=== PATIENT | female | born 1950 | race Caucasian/White ===

== ENCOUNTER → 2016-04-20 16:33 | Outpatient (CLI) | payer MEDICARE, OTHER | END | disposition home or self-care (01) | LOC: D.CT 16:33 | DX: R10.9 Unspecified abdominal pain (principal) ==

== ENCOUNTER → 2016-11-17 12:31 | Outpatient (CLI) | payer MEDICARE, OTHER | END | disposition home or self-care (01) | LOC: D.MAMMO 12:31 | DX: Z12.31 Encounter for screening mammogram for malignant neoplasm of breast (principal) ==

== ENCOUNTER → 2017-01-28 20:45 | Outpatient (CLI) | payer MEDICARE, OTHER | END | disposition home or self-care (01) | LOC: D.MAMMO 13:30 | DX: R92.8 Other abnormal and inconclusive findings on diagnostic imaging of breast (principal) ==

== ENCOUNTER 2018-06-28 08:17 | Day surgery (SDC) | payer MEDICARE, OTHER ==
[~2018-06-28] VITALS: Ht 165.1 cm; Wt 63.6 kg
--- NOTE | ~2018-06-28 | OP ---
PATIENT NAME: DURAN BELL MEDICAL RECORD: [id number] :46 LOCATION:D.OPS ADMISSION DATE: SURGEON: STACY WILLIS MD DATE OF OPERATION: 06/28/2018 PROCEDURE: Colonoscopy with polyp ablation. ENDOSCOPIST: Stacy Willis MD SCOPE: Olympus video colonoscope. MEDICATIONS: Per TIVA anesthesia. The patient received 270 mg of propofol for this procedure, O2 at 4 liters. INDICATION FOR THE PROCEDURE: This is a recall procedure. The patient has a history of colon polyps and a positive family history of colon cancer, which was in the patient's father. FINDINGS: Informed consent was given. The patient was made comfortable with the above medications. After reaching an adequate level of sedation by slow IV push, the patient was placed on her left side. The rectal exam revealed good sphincter tone. No fissures or fistulas were appreciated. No external skin tags were seen. The colonoscope was advanced to the cecum, where the ileocecal valve and the appendiceal orifice were identified. No polyps were noted in this area. On withdrawal of the scope, mucosa was carefully inspected. The patient was noted to have some very mild left-sided diverticulosis without diverticulitis. Within the rectal vault and on retroflexion, 2 polyps were noted in the distal rectal area and these were ablated. The patient also had internal hemorrhoids with skin tags. The scope was then withdrawn. It should be noted that adhesions were also present, most pronounced in the pelvic area. IMPRESSION: 1. Two distal rectal polyps, ablated. 2. Mild left-sided diverticulosis without diverticulitis. 3. Cecum identified and normal. 4. Adhesions. 5. Internal hemorrhoids with skin tags. PLAN: 1. No aspirin and no anti-inflammatory drugs times 14 days. 2. High-fiber diet. 3. Probiotics. 4. Return to clinic on a p.r.n. basis. TRANSINT:[id number] Voice Confirmation ID: [id number] DOCUMENT ID: [id number] STACY WILLIS MD CC: JUAN PALAFOX MD [id number] DICTATION DATE: 06/28/18 1122 OCCUPATIONAL THERAPY ASSISTANT: 06/28/18 1316 [facility] 06/28/18 [place] [address]
[2018-06-28 09:21] LABS: HEMATOCRIT 38.2 % (36.0-48.0); HEMOGLOBIN 12.5 g/dL (12-16); MCH 32.6 pg (26.0-34.0); MCHC 32.7 g/dL (31.0-37.0); MCV 99.5 fL (80.0-100.0); MEAN PLATELET VOLUME 9.1 fL (7.4-10.4); RBC 3.84 10x6/uL (4.00-5.40); RDW 12.3 % (11.5-14.5); WBC 3.6 10x3/uL (4.8-10.8)
[2018-06-28 10:25] VITALS: BP 124/74; Ht 165.1 cm; Wt 63.6 kg
[2018-06-28] MEDS ORDERED: PRISTIQ50 MG PO (10:28)
[2018-06-28] MEDS ORDERED: ELAVIL25 MG PO (10:28)
[2018-06-28] MEDS ORDERED: TOPROL XL25 MG PO (10:28)
[2018-06-28] MEDS ORDERED: PEPCID AC20 MG PO (10:29)
[2018-06-28] MEDS ORDERED: OMEPRAZOLE20 M1 PO (10:29)
[2018-06-28] MEDS ORDERED: XANAX1 MG PO (10:29)
[2018-06-28] MEDS ORDERED: VITAMIN B-121000 MCG PO (10:30)
[2018-06-28] MEDS ORDERED: VITAMIN B-12500 MC1 PO (10:30)
[2018-06-28] MEDS ORDERED: TYLENOL W/CODEI1 TAB PO (10:30)
--- NOTE | 2018-06-28 11:41 | NUR ---
1126-RECD TO ROOM FROM GI LAB. ALERT. IV PATENT. 1130-DR BECERRA IN TO REPORT FINDINGS. 1140-FULL LIQUIDS SERVED.
--- NOTE | 2018-06-28 11:57 | NUR ---
1156-UP TO BATHROOM, VOIDS. IV D/C AND PATIENT DRESSES SELF. 1158-DISCHARGE INSTRUCTIONS REVIEWED AND AWAITING TRANSPORTATION.
--- NOTE | 2018-06-28 12:13 | NUR ---
1210-D/C HOME VIA WHEELCHAIR.
== END 2018-06-28 12:10 | disposition home or self-care (01) ==
LOC: D.OPS 08:17
PROVIDERS: Anesthesiology; ATTEND Internal Medicine Gastroenterology
DX: K62.1 Rectal polyp (principal); K57.30 Diverticulosis of large intestine without perforation or abscess without bleeding; K64.8 Other hemorrhoids; K64.4 Residual hemorrhoidal skin tags; Z01.812 Encounter for preprocedural laboratory examination

== ENCOUNTER 2018-11-28 08:00 | Outpatient (CLI) | payer MEDICARE, OTHER ==
[2018-06-28 10:25] VITALS: BMI 23.3
[~2018-11-28 08:00] MED LIST: ELAVIL25 MG PO; OMEPRAZOLE20 M1 PO; PEPCID AC20 MG PO; PRISTIQ50 MG PO; TOPROL XL25 MG PO; TYLENOL W/CODEI1 TAB PO; VITAMIN B-121000 MCG PO; VITAMIN B-12500 MC1 PO; XANAX1 MG PO
== END 2018-11-28 23:59 | disposition home or self-care (01) ==
LOC: D.MAMMO 08:00
PROVIDERS: ATTEND Nurse Practitioner Family
DX: Z12.31 Encounter for screening mammogram for malignant neoplasm of breast (principal)

== ENCOUNTER 2019-11-30 16:00 | Outpatient (CLI) | payer MEDICARE, OTHER ==
[2018-06-28 10:25] VITALS: BMI 23.3
== END 2019-11-30 16:30 | disposition home or self-care (01) ==
LOC: D.MAMMO 16:00
PROVIDERS: ATTEND Internal Medicine Medical Oncology
DX: Z12.31 Encounter for screening mammogram for malignant neoplasm of breast (principal)